=== PATIENT | male | born 1940 | race Caucasian/White ===

== ENCOUNTER → 2016-10-14 | Outpatient (CLI) | payer OTHER | LOC: BHFA 09:15 | PROVIDERS: ATTEND Internal Medicine Interventional Cardiology | DX: I25.10 Atherosclerotic heart disease of native coronary artery without angina pectoris (principal) ==

== ENCOUNTER → 2016-12-25 | Outpatient (CLI) | payer OTHER | LOC: BHFA 09:00 | PROVIDERS: ATTEND Internal Medicine Cardiovascular Disease | DX: R07.9 Chest pain, unspecified (principal); I25.10 Atherosclerotic heart disease of native coronary artery without angina pectoris | CPT/HCPCS: 78452; 93017; A9500 ==

== ENCOUNTER 2017-04-21 15:59 | Emergency (ER) | payer OTHER, MEDICARE ==
--- NOTE | 2017-04-21 16:19 | EDPHY ---
H & P Stated Complaint: fever Time Seen by Provider: 04/21/17 16:18 HPI/ROS: CHIEF COMPLAINT: Fever, generalized weakness HISTORY OF PRESENT ILLNESS: The patient presents to the ED with a several day history of generalized weakness and a high fever earlier today. The patient does report shaking chills earlier in the day. The patient may have had an episode of mild incontinence. The patient denies cough, congestion, flank pain , abdominal pain, diarrhea, travel outside the [place], recent antibiotics or rash. The patient does have a history of coronary artery disease but denies recent infectious symptoms. The patient denies any additional acute complaints. REVIEW OF SYSTEMS: A comprehensive 10 point review of systems is otherwise negative aside from elements mentioned in the history of present illness. Source: Patient - Personal History Current Tetanus/Diphtheria Vaccine: Unsure Current Tetanus Diphtheria and Acellular Pertussis (TDAP): Unsure - Medical/Surgical History Hx Asthma: No Hx Chronic Respiratory Disease: No Hx Diabetes: No Hx Cardiac Disease: No Hx Renal Disease: No Hx Cirrhosis: No Hx Alcoholism: No Hx HIV/AIDS: No Hx Splenectomy or Spleen Trauma: No Other PMH: CAD, cataract surgery, oral surgery - Social History Smoking Status: Never smoked - Physical Exam Exam: General Appearance: Alert, no distress Eyes: Pupils equal and round no pallor or injection ENT, Mouth: Mucous membranes moist Respiratory: There are no retractions, lungs are clear to auscultation Cardiovascular: Tachycardic Gastrointestinal: Abdomen is soft and nontender, no masses, bowel sounds normal Neurological: A&O, normal motor function, normal sensory exam, normal cranial nerves Skin: Warm and dry, no rashes Musculoskeletal: Neck is supple nontender Extremities: symmetrical, full range of motion Constitutional: Initial Vital Signs Temperature (C) 37.5 C 04/21/17 16:04 Heart Rate 119 H 04/21/17 16:04 Respiratory Rate 16 04/21/17 16:04 Blood Pressure 102/70 04/21/17 16:04 O2 Sat (%) 91 L 04/21/17 16:04 O2 Delivery Mode Room Air Allergies/Adverse Reactions: ibuprofen Allergy (Verified 09/24/16 21:09) Home Medications: Medication Instructions Recorded Aspirin EC [Aspirin EC 81 mg (*)] 81 mg PO DAILY 09/24/16 Pravastatin Sodium 20 mg PO DAILY 12/22/16 Clopidogrel Bisulfate [Plavix (*)] 75 mg PO DAILY #0 tab 09/26/16 Medical Decision Making - Diagnostics Imaging Results: Imaging Impressions Chest X-Ray 04/21/17 16:35 Impression: Mild perihilar bronchitis, without a focal infiltrate. ED Course/Re-evaluation: The patient presents to the ED with a fever without source. The patient's urinalysis demonstrates no evidence of infection. Chest x-ray demonstrates no evidence of pneumonia. The patient's sed rate is reassuring at 1. The patient does have a slight leukocytosis and shift. The patient is otherwise well- appearing with a reassuring normal venous lactate of 1.4. Blood cultures have been obtained. At this point time I see no obvious bacterial infection. The patient is well enough appearing that I feel he can watch for any progression of his symptoms at home. The patient has been instructed to follow up with his primary care provider tomorrow for recheck. He should return to the ED immediately for high fever, vomiting, the development of any pain or new symptoms. I re-evaluated the patient at 6:00 p.m.. He is currently asymptomatic. Temperature currently 97.7degrees. The patient will be discharged home and advised to return for new symptoms. He will follow up with his PCP for recheck. Blood cultures are pending. Differential Diagnosis: Differential diagnosis considered includes bacteremia, viral syndrome, pharyngitis, pneumonia, urinary tract infection - Data Points Laboratory Results: Laboratory Results 04/21/17 16:20 04/21/17 16:20 04/21/17 04/21/17 04/21/17 17:10 16:20 16:20 WBC 13.01 10^3/uL H 10^3/uL (3.80-9.50) RBC 5.22 10^6/uL 10^6/uL (4.40-6.38) Hgb 17.7 g/dL H g/dL (13.7-17.5) Hct 49.7 % % (40.0-51.0) MCV 95.2 fL fL (81.5-99.8) MCH 33.9 pg pg (27.9-34.1) MCHC 35.6 g/dL g/dL (32.4-36.7) RDW 13.1 % % (11.5-15.2) Plt Count 152 10^3/uL 10^3/uL (150-400) MPV 9.9 fL fL (8.7-11.7) Neut % (Auto) 96.0 % H % (39.3-74.2) Lymph % (Auto) 2.3 % L % (15.0-45.0) [place] % (Auto) 1.2 % L % (4.5-13.0) Eos % (Auto) 0.0 % L % (0.6-7.6) Baso % (Auto) 0.2 % L % (0.3-1.7) Nucleat RBC Rel Count 0.0 % % (0.0-0.2) Absolute Neuts (auto) 12.49 10^3/uL H 10^3/uL (1.70-6.50) Absolute Lymphs (auto) 0.30 10^3/uL L 10^3/uL (1.00-3.00) Absolute Monos (auto) 0.16 10^3/uL L 10^3/uL (0.30-0.80) Absolute Eos (auto) 0.00 10^3/uL L 10^3/uL (0.03-0.40) Absolute Basos (auto) 0.02 10^3/uL 10^3/uL (0.02-0.10) Absolute Nucleated RBC 0.00 10^3/uL 10^3/uL (0-0.01) Immature Gran % 0.3 % % (0.0-1.1) Immature Gran # 0.04 10^3/uL 10^3/uL (0.00-0.10) ESR 1 MM/HR MM/HR (0-20) VBG Lactic Acid 1.4 mmol/L mmol/L (0.7-2.1) Sodium 138 mEq/L mEq/L (134-144) Potassium 4.1 mEq/L mEq/L (3.5-5.2) Chloride 104 mEq/L mEq/L (97-110) Carbon Dioxide 20 mEq/l L mEq/l (22-31) Anion Gap 14 mEq/L mEq/L (8-16) BUN 22 mg/dL mg/dL (7-23) Creatinine 1.1 mg/dL mg/dL (0.7-1.3) Estimated GFR > 60 Glucose 101 mg/dL H mg/dL (70-100) Calcium 9.5 mg/dL mg/dL (8.5-10.4) Total Bilirubin 1.2 mg/dL mg/dL (0.1-1.4) Conjugated Bilirubin 0.3 mg/dL mg/dL (0.0-0.5) Unconjugated Bilirubin 0.9 mg/dL mg/dL (0.0-1.1) AST 44 IU/L IU/L (17-59) ALT 44 IU/L IU/L (21-72) Alkaline Phosphatase 64 IU/L IU/L (38-126) Total Protein 6.7 g/dL g/dL (6.3-8.2) Albumin 4.2 g/dL g/dL (3.5-5.0) Urine Color Urine Appearance Urine pH Ur Specific [place] Urine Protein Urine Ketones Urine Blood Urine Nitrate Urine Bilirubin Urine Urobilinogen Ur Leukocyte Esterase Urine Glucose 04/21/17 16:00 WBC RBC Hgb Hct MCV MCH MCHC RDW Plt Count MPV Neut % (Auto) Lymph % (Auto) [place] % (Auto) Eos % (Auto) Baso % (Auto) Nucleat RBC Rel Count Absolute Neuts (auto) Absolute Lymphs (auto) Absolute Monos (auto) Absolute Eos (auto) Absolute Basos (auto) Absolute Nucleated RBC Immature Gran % Immature Gran # ESR VBG Lactic Acid Sodium Potassium Chloride Carbon Dioxide Anion Gap BUN Creatinine Estimated GFR Glucose Calcium Total Bilirubin Conjugated Bilirubin Unconjugated Bilirubin AST ALT Alkaline Phosphatase Total Protein Albumin Urine Color YELLOW Urine Appearance HAZY Urine pH 7.0 (5.0-7.5) Ur Specific [place] 1.016 (1.002-1.030) Urine Protein NEGATIVE (NEGATIVE) Urine Ketones TRACE H (NEGATIVE) Urine Blood NEGATIVE (NEGATIVE) Urine Nitrate NEGATIVE (NEGATIVE) Urine Bilirubin NEGATIVE (NEGATIVE) Urine Urobilinogen NEGATIVE EU EU (0.2-1.0) Ur Leukocyte Esterase NEGATIVE (NEGATIVE) Urine Glucose NEGATIVE (NEGATIVE) Departure - Departure Disposition: Home, Routine, Self-Care Clinical Impression: Fever Condition: Good Instructions: Fever in Adults (ED) Additional Instructions: 1. Please follow-up with your primary care provider in the next 1-2 days for recheck. 2. Please return to the ED immediately for high fever, severe pain, vomiting, difficulty breathing or the development of any new symptoms. 3. At this point time I see no evidence of an obvious bacterial infection. We have obtained blood cultures and we will contact you in the bed these are positive. Referrals: Marty Shea DO [Primary Care Provider] - As per Instructions
[2017-04-21 16:25] LABS: COLOR YELLOW; LEUKOCYTE ESTERASE,URINE NEGATIVE (NEGATIVE); NITRITE,URINE NEGATIVE (NEGATIVE)
[2017-04-21 16:40] LABS: % IMMATURE GRANULYOCYTES 0.3 % (0.0-1.1); ABSOLUTE IMMATURE GRANULOCYTES 0.04 10^3/uL (0.00-0.10); ADD DIFF? NO; ADD MORPH? NO; ADD SCAN? NO; ATYPICAL LYMPHOCYTE FLAG 0 (0-99); FRAGMENT RBC FLAG 0 (0-99); HEMATOCRIT 49.7 % (40.0-51.0); HEMOGLOBIN 17.7 g/dL (13.7-17.5); LEFT SHIFT FLG 10 (0-99); LIPEMIA HEMOLYSIS FLAG 90 (0-99); MEAN CELL HEMOGLOBIN 33.9 pg (27.9-34.1); MEAN CELL HEMOGLOBIN CONCENTR. 35.6 g/dL (32.4-36.7); MEAN CELL VOLUME 95.2 fL (81.5-99.8); MEAN PLATELET VOLUME 9.9 fL (8.7-11.7); PLATELET CLUMPS FLAG 10 (0-99); PLATELET COUNT 152 10^3/uL (150-400); RED BLOOD CELL COUNT 5.22 10^6/uL (4.40-6.38); RED CELL DISTRIBUTION WIDTH 13.1 % (11.5-15.2)
[2017-04-21 16:55] LABS: SEDIMENTATION RATE 1 MM/HR (0-20)
[2017-04-21 17:05] LABS: ALANINE AMINOTRANSFERASE 44 IU/L (21-72); ALBUMIN 4.2 g/dL (3.5-5.0); ALKALINE PHOSPHATASE 64 IU/L (38-126); ANION GAP 14 mEq/L (8-16); ASPARTATE AMINOTRANSFERASE 44 IU/L (17-59); BILIRUBIN,TOTAL 1.2 mg/dL (0.1-1.4); BILIRUBIN-CONJUGATED 0.3 mg/dL (0.0-0.5); BILIRUBIN-UNCONJUGATED 0.9 mg/dL (0.0-1.1); CALCIUM 9.5 mg/dL (8.5-10.4); CARBON DIOXIDE 20 mEq/l (22-31); CHLORIDE 104 mEq/L (97-110); CREATININE 1.1 mg/dL (0.7-1.3); GLOMERULAR FILTRATION RATE > 60; GLUCOSE 101 mg/dL (70-100); POTASSIUM 4.1 mEq/L (3.5-5.2); SODIUM 138 mEq/L (134-144); TOTAL PROTEIN 6.7 g/dL (6.3-8.2)
[2017-04-21 17:58] VITALS: BP 130/83; PULSE 99; RESP 18; TEMP 98.1; O2SAT 92
[2017-04-21 21:20] LABS: MUCUS TRACE /lpf (NONE-1+); RBC,URINE NONE SEEN /hpf (0-3)
[2017-04-26 16:47] LABS: INTERPRETATION See Comments; WEST NILE VIRUS IGG Negative (Negative); WEST NILE VIRUS IGM Negative (Negative)
== END 2017-04-21 18:03 | disposition home or self-care (01) ==
DX: R50.9 Fever, unspecified (principal); I25.10 Atherosclerotic heart disease of native coronary artery without angina pectoris; Z79.82 Long term (current) use of aspirin

== ENCOUNTER 2017-04-23 01:14 | Observation (INO) | payer OTHER, MEDICARE ==
[2017-04-23] MEDS ORDERED: NS 1,000 ML IV ONE (02:18)
[2017-04-23 02:45] LABS: % IMMATURE GRANULYOCYTES 0.3 % (0.0-1.1); ABSOLUTE IMMATURE GRANULOCYTES 0.02 10^3/uL (0.00-0.10); ADD DIFF? NO; ADD MORPH? NO; ADD SCAN? NO; ATYPICAL LYMPHOCYTE FLAG 0 (0-99); FRAGMENT RBC FLAG 0 (0-99); HEMATOCRIT 49.1 % (40.0-51.0); HEMOGLOBIN 17.2 g/dL (13.7-17.5); LEFT SHIFT FLG 0 (0-99); LIPEMIA HEMOLYSIS FLAG 90 (0-99); MEAN CELL HEMOGLOBIN 33.7 pg (27.9-34.1); MEAN CELL VOLUME 96.1 fL (81.5-99.8); MEAN PLATELET VOLUME 9.8 fL (8.7-11.7); PLATELET CLUMPS FLAG 0 (0-99); PLATELET COUNT 130 10^3/uL (150-400); RED BLOOD CELL COUNT 5.11 10^6/uL (4.40-6.38); RED CELL DISTRIBUTION WIDTH 13.3 % (11.5-15.2)
[2017-04-23 03:07] LABS: ANION GAP 10 mEq/L (8-16); CARBON DIOXIDE 25 mEq/l (22-31); CHLORIDE 102 mEq/L (97-110); CREATININE 1.2 mg/dL (0.7-1.3); GLOMERULAR FILTRATION RATE 58; GLUCOSE 92 mg/dL (70-100); POTASSIUM 4.2 mEq/L (3.5-5.2); SODIUM 137 mEq/L (134-144)
--- NOTE | 2017-04-23 03:35 | EDPHY ---
H & P Time Seen by Provider: 04/23/17 02:07 HPI/ROS: HPI Positive blood culture. 77-year-old male by private vehicle. This patient was seen in the emergency department on April [address] Todd Rice. At that time he presented with complaint of fever, chills, malaise and generalized weakness. He had an extensive workup including blood cultures and a chest x-ray. He was discharged to home. Results of his blood cultures were pending. His blood culture results came back earlier this evening and were both positive for gram-negative rods. He was called back to the emergency department by our nursing staff. Tells me at this time that he is feeling better. He denies any significant complaints. I discussed my concern regarding his bacteremia. He states that he still feels a little fatigued but otherwise has not had any fevers or chills. No cough. No other complaints. ROS: Constitutional: No fever, no chills. As above. Eyes: No discharge. No changes in vision. ENT: No sore throat. No nasal congestion or rhinorrhea. Respiratory: No cough. No shortness of breath. Cardiac: No chest pain, no palpitations. Gastrointestinal: No abdominal pain, no vomiting, no diarrhea. Genitourinary: No hematuria. No dysuria or increased frequency with urination. Musculoskeletal: No back pain. No neck pain. No myalgias or arthralgias. Skin: No rashes. Neurological: No headache. No focal weakness or altered sensation. Past medical history: Coronary artery disease, cataract surgery, oral surgery. Social history: He has a significant other. He is currently here by himself. Nonsmoker. Physical Exam: General Appearance: Alert, no distress. This patient is responding to questions appropriately and in full sentences. This patient appears well- hydrated and well-nourished. Eyes: Pupils equal and round no pallor or injection. No lid edema, erythema or injection. Respiratory: There are no retractions, lungs are clear to auscultation with good air movement bilaterally. Cardiovascular: Regular rate and rhythm. No murmur. Gastrointestinal: Abdomen is soft and nontender, no masses, bowel sounds normal. No focal tenderness at McBurney's point. No Orozco sign. Neurological: Motor sensory function is grossly intact. Cranial nerves are normal. Gait is normal. Skin: Warm and dry, no rashes. Musculoskeletal: Neck is supple and nontender. No cervical or submandibular lymphadenopathy. Extremities are symmetrical. All joints range without pain or impingement. Psychiatric: No agitation. No depression. Database: EKG: Imaging: Procedures: Emergency department course: Vital signs reviewed and are normal. An IV was placed by the nursing staff. His previous medical records were reviewed. Blood work including venous lactate was repeated. Repeat lactate is 0.8, down from 1.4 on April 21. CBC shows a platelet count 130 but is otherwise unremarkable. No leukocytosis. His renal function and electrolytes are normal. 3:20 a.m., I consulted with on-call infectious disease specialist, Dr. Eliud Tapia. He feels the patient should be admitted and started on IV ceftriaxone. The other option was to send him home on oral Levaquin. 3:30 a.m., patient re-evaluated. I discussed my conversation with Dr. Eliud Tapia. Results of his blood work were discussed with him. Patient currently does not want to be admitted. I discussed the reasoning for admission and my concerns regarding his blood culture results. He will talk it over with his partner. 3:45 a.m., patient agrees to be admitted to the hospitalist service. He was started on 2 g of IV ceftriaxone in the emergency department. 3:50 a.m., spoke with on-call hospitalist, Dr. Bourne. She was aware of this patient. She accepts the patient for admission. The patient's remaining emergency department course under my care has been uneventful. He was admitted to the hospitalist service in stable condition. Differential Diagnosis: The differential diagnosis on this patient includes but is not limited to bacteremia. Sepsis, pneumonia, urinary tract infection unlikely. This represents a partial list of diagnoses considered. These considerations are based on history, physical exam, past history, reassessment and diagnostic testing. Smoking Status: Never smoked Constitutional: Initial Vital Signs Temperature (C) 36.6 C 04/23/17 01:26 Heart Rate 82 04/23/17 01:26 Respiratory Rate 18 04/23/17 01:26 Blood Pressure 127/64 H 04/23/17 01:26 O2 Sat (%) 94 04/23/17 01:26 O2 Delivery Mode Room Air Allergies/Adverse Reactions: ibuprofen Allergy (Verified 09/24/16 21:09) Home Medications: Medication Instructions Recorded Aspirin EC [Aspirin EC 81 mg (*)] 81 mg PO DAILY 09/24/16 Pravastatin Sodium 20 mg PO DAILY 09/24/16 Clopidogrel Bisulfate [Plavix (*)] 75 mg PO DAILY #0 tab 09/26/16 Pepcid 20 MG (*) 04/23/17 Medical Decision Making - Data Points Laboratory Results: Laboratory Results 04/23/17 02:37 04/23/17 02:37 04/23/17 04/23/17 04/23/17 02:37 02:37 02:37 WBC 6.64 10^3/uL 10^3/uL (3.80-9.50) RBC 5.11 10^6/uL 10^6/uL (4.40-6.38) Hgb 17.2 g/dL g/dL (13.7-17.5) Hct 49.1 % % (40.0-51.0) MCV 96.1 fL fL (81.5-99.8) MCH 33.7 pg pg (27.9-34.1) MCHC 35.0 g/dL g/dL (32.4-36.7) RDW 13.3 % % (11.5-15.2) Plt Count 130 10^3/uL L 10^3/uL (150-400) MPV 9.8 fL fL (8.7-11.7) Neut % (Auto) 82.7 % H % (39.3-74.2) Lymph % (Auto) 7.7 % L % (15.0-45.0) [place] % (Auto) 8.4 % % (4.5-13.0) Eos % (Auto) 0.6 % % (0.6-7.6) Baso % (Auto) 0.3 % % (0.3-1.7) Nucleat RBC Rel Count 0.0 % % (0.0-0.2) Absolute Neuts (auto) 5.49 10^3/uL 10^3/uL (1.70-6.50) Absolute Lymphs (auto) 0.51 10^3/uL L 10^3/uL (1.00-3.00) Absolute Monos (auto) 0.56 10^3/uL 10^3/uL (0.30-0.80) Absolute Eos (auto) 0.04 10^3/uL 10^3/uL (0.03-0.40) Absolute Basos (auto) 0.02 10^3/uL 10^3/uL (0.02-0.10) Absolute Nucleated RBC 0.00 10^3/uL 10^3/uL (0-0.01) Immature Gran % 0.3 % % (0.0-1.1) Immature Gran # 0.02 10^3/uL 10^3/uL (0.00-0.10) VBG Lactic Acid 0.8 mmol/L mmol/L (0.7-2.1) Sodium 137 mEq/L mEq/L (134-144) Potassium 4.2 mEq/L mEq/L (3.5-5.2) Chloride 102 mEq/L mEq/L (97-110) Carbon Dioxide 25 mEq/l mEq/l (22-31) Anion Gap 10 mEq/L mEq/L (8-16) BUN 22 mg/dL mg/dL (7-23) Creatinine 1.2 mg/dL mg/dL (0.7-1.3) Estimated GFR 58 Glucose 92 mg/dL mg/dL (70-100) Calcium 9.0 mg/dL mg/dL (8.5-10.4) Medications Given: Discontinued Medications Sodium Chloride (Ns) 1,000 mls @ 0 mls/hr IV ONCE ONE; Wide Open PRN Reason: Protocol Stop: 04/23/17 02:19 Last Admin: 04/23/17 04:54 Dose: 1,000 mls Ceftriaxone Sodium 2 gm/ (Dextrose) 50 mls @ 100 mls/hr IV EDNOW ONE PRN Reason: Protocol Stop: 04/23/17 04:19 Last Admin: 04/23/17 04:53 Dose: 50 mls Departure - Departure Disposition: [facility] Clinical Impression: Bacteremia
[2017-04-23] MEDS ORDERED: cefTRIAXone 2 GM in D5W 50 ML IV ONE (03:50)
[2017-04-23] MEDS ORDERED: ACETAMINOPHEN 325 MG TAB PO PRN (05:03)
[2017-04-23] MEDS ORDERED: oxyCODONE IR 5 MG TAB PO PRN (05:03)
[2017-04-23] MEDS ORDERED: ONDANSETRON DISINTEGRATING 4 MG TAB PO PRN (05:03)
[2017-04-23] MEDS ORDERED: ONDANSETRON 4 MG/2 ML VIAL IVP PRN (05:03)
--- NOTE | 2017-04-23 06:41 | PDGENHP ---
History and Physical - Chief Complaint told to come back - History of Present Illness 77 yo M with PMH of CAD s/p stent to LAD in the last year presenting after being called and told to return to the ER for positive blood cultures. Patient was seen on 04/21 for fever and shaking chills. He had no other localizing symptoms and after being observed in the ER, had improved significantly. Blood cultures were drawn and patient was sent home without antibiotics and a plan to monitor his symptoms. Since discharge he notes essentially continuing to improve. He remains somewhat fatigued and with a bit less of an appetite, but otherwise denies recurrent fever or chills, denies urinary symptoms, denies cough or sob, denies n/v or diarrhea, denies rash. He also mentions a concern that his brother is due to fly in from [place] today and he is very hopeful that he will be able to be d/c'ed this afternoon. History Information - Allergies/Home Medication List Allergies/Adverse Reactions: ibuprofen Allergy (Verified 09/24/16 21:09) Home Medications: Aspirin EC [Aspirin EC 81 mg (*)] 81 mg PO DAILY 09/24/16 [Last Taken Unknown] Pravastatin Sodium 20 mg PO DAILY 09/24/16 [Last Taken Unknown] Pepcid 20 MG (*) 04/23/17 [Last Taken Unknown] I have personally reviewed and updated: family history, medical history, social history, surgical history - Past Medical History coronary artery disease (s/p stent to LAD 09/2016), hyperlipidemia Additional medical history: CAD - Surgical History Reports: angioplasty Additional surgical history: oral surgery. b/l cataract repair. tonsillectomy - Family History Positive for: stroke Additional family history: both parents: CVA - Social History Smoking Status: Never smoked Alcohol Use: Occasionally Drug Use: None Additional social history: Patient lives with his girlfriend. Is independent. 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 Review of Systems ROS: 10pt was reviewed & negative except for what was stated in HPI & below Physical Exam Temp Pulse Resp BP Pulse Ox 36.6 C 69 16 134/70 H 94 04/23/17 05:03 04/23/17 05:03 04/23/17 05:03 04/23/17 05:03 04/23/17 05:03 Constitutional: no apparent distress, appears nourished Eyes: PERRL, anicteric sclera Ears, Nose, Mouth, Throat: moist mucous membranes, hearing normal Cardiovascular: regular rate and rhythym, no murmur, rub, or gallop, No edema Respiratory: no respiratory distress, no rales or rhonchi, clear to auscultation Gastrointestinal: normoactive bowel sounds, soft, non-tender abdomen, no palpable masses, No tenderness, No distension Genitourinary: no bladder tenderness Skin: warm, normal color Musculoskeletal: full muscle strength, no muscle tenderness Neurologic: AAOx3, sensation intact bilaterally Psychiatric: interacting appropriately, not anxious, not encephalopathic Lab Data & Imaging Review 04/23/17 02:37 04/23/17 02:37 WBC 6.64 10^3/uL (3.80-9.50) 04/23/17 02:37 RBC 5.11 10^6/uL (4.40-6.38) 04/23/17 02:37 Hgb 17.2 g/dL (13.7-17.5) 04/23/17 02:37 Hct 49.1 % (40.0-51.0) 04/23/17 02:37 MCV 96.1 fL (81.5-99.8) 04/23/17 02:37 MCH 33.7 pg (27.9-34.1) 04/23/17 02:37 MCHC 35.0 g/dL (32.4-36.7) 04/23/17 02:37 RDW 13.3 % (11.5-15.2) 04/23/17 02:37 Plt Count 130 10^3/uL (150-400) L 04/23/17 02:37 MPV 9.8 fL (8.7-11.7) 04/23/17 02:37 Neut % (Auto) 82.7 % (39.3-74.2) H 04/23/17 02:37 Lymph % (Auto) 7.7 % (15.0-45.0) L 04/23/17 02:37 [place] % (Auto) 8.4 % (4.5-13.0) 04/23/17 02:37 Eos % (Auto) 0.6 % (0.6-7.6) 04/23/17 02:37 Baso % (Auto) 0.3 % (0.3-1.7) 04/23/17 02:37 Nucleat RBC Rel Count 0.0 % (0.0-0.2) 04/23/17 02:37 Absolute Neuts (auto) 5.49 10^3/uL (1.70-6.50) 04/23/17 02:37 Absolute Lymphs (auto) 0.51 10^3/uL (1.00-3.00) L 04/23/17 02:37 Absolute Monos (auto) 0.56 10^3/uL (0.30-0.80) 04/23/17 02:37 Absolute Eos (auto) 0.04 10^3/uL (0.03-0.40) 04/23/17 02:37 Absolute Basos (auto) 0.02 10^3/uL (0.02-0.10) 04/23/17 02:37 Absolute Nucleated RBC 0.00 10^3/uL (0-0.01) 04/23/17 02:37 Immature Gran % 0.3 % (0.0-1.1) 04/23/17 02:37 Immature Gran # 0.02 10^3/uL (0.00-0.10) 04/23/17 02:37 VBG Lactic Acid 0.8 mmol/L (0.7-2.1) 04/23/17 02:37 Sodium 137 mEq/L (134-144) 04/23/17 02:37 Potassium 4.2 mEq/L (3.5-5.2) 04/23/17 02:37 Chloride 102 mEq/L (97-110) 04/23/17 02:37 Carbon Dioxide 25 mEq/l (22-31) 04/23/17 02:37 Anion Gap 10 mEq/L (8-16) 04/23/17 02:37 BUN 22 mg/dL (7-23) 04/23/17 02:37 Creatinine 1.2 mg/dL (0.7-1.3) 04/23/17 02:37 Estimated GFR 58 04/23/17 02:37 Glucose 92 mg/dL (70-100) 04/23/17 02:37 Calcium 9.0 mg/dL (8.5-10.4) 04/23/17 02:37 Visualized and Interpreted Chest x-ray results: Yes Chest X-Ray results: other (mild bronchitis) Assessment & Plan Assessment: Bacteremia (Acute) 77 yo M with recent ER evaluation for rigors and fever called back for positive blood cultures # GNR bacteremia: present in 2/2 bottles from 04/21, has not been on abx since that time however symptoms have resolved in the interim. Dr. Tapia was contacted by ER and recommended CTX for now. Repeat blood cultures obtained, UA and LFTs from 04/21 were normal but will repeat. BCID PCR results discussed with micro lab and notable for no organism discovered with final culture data pending. Will continue ctx for now and have requested formal ID consult in am. # leukocytosis: present 2 days ago and since normalized, in setting of above # CAD: without any issues with cp or other complaints related to this, continue asa/plavix/statin # dispo: observation status Patient new to my care. Old records reviewed and summarized as above. Care plan reviewed with ER doctor including plans for abx/ID consultation.
[2017-04-23 06:57] LABS: ANION GAP 9 mEq/L (8-16); CALCIUM 8.1 mg/dL (8.5-10.4); CARBON DIOXIDE 23 mEq/l (22-31); CHLORIDE 106 mEq/L (97-110); CREATININE 1.1 mg/dL (0.7-1.3); GLOMERULAR FILTRATION RATE > 60; GLUCOSE 91 mg/dL (70-100); SODIUM 138 mEq/L (134-144)
[2017-04-23 07:59] LABS: ALBUMIN 3.3 g/dL (3.5-5.0); BILIRUBIN,TOTAL 0.8 mg/dL (0.1-1.4); BILIRUBIN-CONJUGATED 0.4 mg/dL (0.0-0.5); BILIRUBIN-UNCONJUGATED 0.4 mg/dL (0.0-1.1)
[2017-04-23] MEDS: CLOPIDOGREL BISULFATE 75 MG TAB PO SCH (08:28)
[2017-04-23] MEDS: ENOXAPARIN 40 MG/0.4 ML SYR SC SCH (08:29)
[2017-04-23] MEDS ORDERED: ASPIRIN 81 MG CHEWABLE TAB PO SCH ×2 (09:00→12:00)
[2017-04-23] MEDS ORDERED: ERTAPENEM 1 GM in NS 100 ML IV SCH (10:30)
[2017-04-23] MEDS: FAMOTIDINE 20 MG TAB PO SCH ×2 (11:37→20:14)
--- NOTE | 2017-04-23 12:41 | GCON ---
[f rep st] CONSULTATION INFECTIOUS DISEASES CONSULTATION DATE OF CONSULTATION: 04/23/2017 REFERRING PHYSICIAN: Sneha Méndez NP REASON FOR CONSULTATION: To assist in the management of this 77-year-old male with anaerobic gram-negative dannielle bacteremia. HISTORY OF PRESENT ILLNESS: The patient is a very pleasant 77-year-old male whose previous medical history is notable for the followin. CAD status post stent to LAD within the last year. 2. History of basal cell carcinoma removal from his back. 3. Hyperlipidemia. Regarding his present issues, the patient states that he was completely well up until Wednesday. 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 On Wednesday, he went ballroom dancing with his female partner and although he was actively dancing, he states that he felt "chilly." Then, the patient states he began to shake uncontrollably, so decided to come to our emergency room for further evaluation and treatment. In the emergency room, the patient's temperature was 37.5 with a normal blood pressure and heart rate in the 80s to 90s. His white blood cell count was elevated at 13, ESR of 1. Liver function tests were within normal limits. Renal function was normal. Urinalysis revealed trace ketones, otherwise was negative. Blood cultures were drawn. A chest x-ray was performed that revealed "mild perihilar bronchitis without focal infiltrate." The patient was observed closely in the emergency room. Because there was no blatant evidence of infection, the patient was told he likely had a viral illness and was discharged to home. He states that on he felt better, but not back to himself. He states that his appetite was diminished, although he was still eating. He has not had any further rigors or shakes per se. He told me that he has been checking his blood pressure and heart rate at home, and his blood pressure has been slightly elevated with an elevated heart rate, which is unusual for him. He denies any fever at home, off any Tylenol or fever suppressant. Last evening at 12:30 in the morning, the patient states he was called from the emergency room to come back because of positive blood cultures. The patient states that he was annoyed at being called, and frustrated over the fact that he has to be here. Blood cultures drawn on the are growing anaerobic gram- negative dannielle in what looks to be 2/4 bottles drawn. The patient was admitted last evening and started on ceftriaxone. I am now asked to assist in his management. Speaking with the patient today, he states that he feels better, but not back to himself and is eager to go home. The patient states that his brother is coming in from [place] tomorrow and would like to be home by noon tomorrow. The patient states that his last colonoscopy was 5-1/2 years ago. He states that 1 "precancerous" polyp was found and was removed. Last dental visit was 2 months ago. The patient denies abdominal pain, but does tell me on evening he developed significant hiccups "out of the blue." He states that he has not had hiccups in over 30 years and had to drink several cups of water to get rid of them. PREVIOUS MEDICAL HISTORY: As outlined above. ALLERGIES: Ibuprofen causes a rash and oral ulcers. MEDICATIONS: Presently include ceftriaxone 1 g IV daily, aspirin, Plavix, Lovenox, Zofran, oxycodone, and Pravachol. 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 He lives in [place] with his female partner. He enjoys ballroom dancing as outlined above and plays the flute. He denies any unusual exposures or any recent travel within or outside the [place]. No unpasteurized milk or undercooked foods. He has a dog who is mostly indoor, who is dying of congestive heart failure. No other pets. He drinks 2 alcoholic beverages per evening. History of tobacco, but quit 27 years ago. No other illicit substances. He has 2 children who are healthy. FAMILY HISTORY: Notable for stroke in both parents. REVIEW OF SYSTEMS: Is notable for mild headache and rigors on Wednesday, but no further rigors since then. Diminished appetite, but the patient is eating. He denies nausea, vomiting, sore throat, cough, chest pain, abdominal pain of any sort, burning with urination, or symptoms of prostatism. No penile discharge. No bloody stool or dark tarry stools or changes in his bowel movements. No mouth pain or pain with mastication. No sinus pain or ear pain. No skin rash. Aside from what is outlined above, 10 systems are reviewed and are negative. LABORATORY DATA: White blood cell count is 6.6, down from 13 two days previously, hematocrit 49, platelet count of 130, down from 152, 82% neutrophils. BUN and creatinine 20/1.1. Liver function tests on 04/23 show total bilirubin of 0.8, AST of 41, ALT of 39, alkaline phosphatase of 51. Albumin diminished at 3.3. Urinalysis is negative. West Nile serology is pending. Microbiology: Blood cultures x2 from today are pending. Urine culture is also pending. Blood cultures from the , 2/ bottles are growing anaerobic gram-negative dannielle that is not able to be identified through PCR. PHYSICAL EXAM: VITAL SIGNS: T current is 36.6, T-max 37.5 on 04/21, heart rate 69, blood pressure 134/70. GENERAL: Elderly male, looks completely nontoxic, pleasant, no apparent distress. HEENT: Wearing glasses. Atraumatic, normocephalic. Pupils equal, round, reactive to light. Extraocular movements are intact. No conjunctival injection. No icterus or petechiae. No sinus process tenderness or discharge from the nares. Mucous membranes are moist. No oral lesions noted. Dentition in fair repair with some gum recession. I carefully palpated the patient's gums and teeth, uppers and lowers, and found no evidence of apical or periapical abscess or tooth tenderness whatsoever. Trachea is midline. NECK: No thyromegaly or palpable thyroid nodules. No supraclavicular or cervical lymphadenopathy. CARDIOVASCULAR: S1 and S2. No rubs, gallops, or murmurs audible. No tachycardia. LUNGS: Clear to auscultation bilaterally with no rales, rhonchi, or wheeze. No increased respiratory effort. The patient's anterior chest is somewhat discolored with a purplish hue that he tells me is longstanding. ABDOMEN: Scaphoid, hypoactive bowel sounds. Soft. No organomegaly or tenderness to palpation anywhere. EXTREMITIES: No clubbing, cyanosis, or edema. No muscle belly tenderness. 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 No stigmata of endocarditis. SKIN: Warm and dry. No obvious rashes. He has a purplish hue to the anterior chest, which is longstanding. NEUROLOGIC: Alert and oriented x3. No focal deficits. LABORATORY DATA: As outlined above. RADIOGRAPHIC DATA: Also as outlined in the HPI. IMPRESSION: 77-year-old male with history of coronary artery disease, who now presents with anaerobic gram-negative dannielle bacteremia without a clear source. The patient has no abdominal symptoms whatsoever, and no evidence of an odontogenic source, or any other source, for that matter. PLAN: 1. Change Ceftriaxone to Ertapenem. 2. Will obtain CT scan of the abdomen and pelvis to evaluate for gastrointestinal source. 3. Await identification of the anaerobic gram-negative dannielle. 4. Repeat blood cultures are pending. 5. The patient is anxious to go home but is agreeable to staying at least through tomorrow at noon. I explained to him the importance of a further evaluation. He expressed understanding. Thank you very much for consulting Infectious Diseases. We will continue to follow this patient with you. /[id number]/MODL MTDD
[2017-04-23] MEDS ORDERED: IOPAMIDOL (ISOVUE-300) 100 ML BTL ONE (13:03)
--- NOTE | 2017-04-23 13:09 | HOSPPROG ---
Hospitalist Progress Note Assessment/Plan: 77 yo M with recent ER evaluation for rigors and fever called back for positive blood cultures. D/W Dr Roberts # GNR bacteremia: present in 2/2 bottles from 04/21, has not been on abx since that time however symptoms have resolved in the interim. Dr. Roberts consulting today. Repeat blood cultures obtained, CT of abdomin UA and LFTs from 04/21 were normal but repeated. BCID PCR results notable for no organism discovered with final culture data pending. on Invanz # leukocytosis: present 2 days ago and since normalized, in setting of above # CAD: without any issues with cp or other complaints related to this, continue asa/plavix/statin # dispo: observation status Subjective: Eager to go home. Feels well. No complaints. Objective: Vital Signs Temp Pulse Resp BP Pulse Ox 36.5 C 68 16 110/64 92 04/23/17 12:00 04/23/17 12:00 04/23/17 12:00 04/23/17 12:00 04/23/17 12:00 Laboratory Results 04/23/17 06:20 04/22/17 04/23/17 04/24/17 05:59 05:59 05:59 Intake Total 300 Balance 300 - Physical Exam Constitutional: no apparent distress, appears nourished, not in pain Eyes: PERRL, anicteric sclera, EOMI Ears, Nose, Mouth, Throat: moist mucous membranes, hearing normal, ears appear normal Cardiovascular: regular rate and rhythym, No JVD, No edema Respiratory: no respiratory distress, no rales or rhonchi, clear to auscultation Gastrointestinal: normoactive bowel sounds, soft, non-tender abdomen, No tenderness, No ascites Skin: warm, normal color, No erythema Musculoskeletal: full muscle strength, no muscle tenderness, no joint effusions Neurologic: AAOx3 Psychiatric: interacting appropriately, not anxious, not encephalopathic, thought process linear ICD10 Worksheet Patient Problems: Problems Problem Status Onset Chest pain Acute Bacteremia Acute
--- NOTE | 2017-04-23 14:33 | PCMIDPN ---
Assessment/Plan: 1. Gram-negative dannielle bacteremia, likely secondary to rectosigmoid diverticulitis: Spoke to the patient at length today. Plan for tomorrow is to start oral levofloxacin and metronidazole and discontinue ertapenem. Warned him of Antabuse effect associated with metronidazole, and possible confusion associated with levofloxacin. Will treat for 10 days total. I have asked him to have his partner come in tomorrow morning to be present for the discussion prior to discharge. ( Will review antibiotic side effects, etc) Subjective: Reviewed CT scan of the abdomen and pelvis with . extensive diverticulosis, with probable diverticulitis without abscess in the rectosigmoid area. Had extensive conversation with patient regarding pathophysiology /prognosis regarding diverticulitis. Objective: Vital Signs Temp Pulse Resp BP Pulse Ox 36.5 C 68 16 110/64 92 04/23/17 12:00 04/23/17 12:00 04/23/17 12:00 04/23/17 12:00 04/23/17 12:00 Laboratory Results 04/23/17 06:20 04/22/17 04/23/17 04/24/17 05:59 05:59 05:59 Intake Total 300 Balance 300 ICD10 Worksheet Patient Problems: Problems Problem Status Onset Bacteremia Acute Chest pain Acute
[2017-04-24 07:44] VITALS: BP 98/58; PULSE 59; RESP 16; TEMP 98.8; O2SAT 93
[2017-04-24] MEDS: FAMOTIDINE 20 MG TAB PO SCH (08:42)
[2017-04-24] MEDS: ENOXAPARIN 40 MG/0.4 ML SYR SC SCH (08:43)
[2017-04-24] MEDS: CLOPIDOGREL BISULFATE 75 MG TAB PO SCH (08:43)
[2017-04-24] MEDS ORDERED: metroNIDAZOLE 500 MG TAB PO SCH (09:00)
[2017-04-24] MEDS ORDERED: MULTIVITAMINS 1 EACH TAB PO SCH (09:00)
[2017-04-24] MEDS ORDERED: CLOPIDOGREL BISULFATE 75 MG TAB PO SCH (09:00)
[2017-04-24] MEDS ORDERED: PRAVASTATIN SODIUM 40 MG TAB PO SCH (09:00)
[2017-04-24] MEDS ORDERED: ASPIRIN EC 81 MG TAB PO SCH (09:00)
--- NOTE | 2017-04-24 09:51 | PCMIDPN ---
Assessment/Plan: 1. Gram-negative dannielle bacteremia, secondary to rectosigmoid diverticulitis: Patient is anxious and eager to go home. States that he feels completely well. Had 1st dose of levofloxacin and metronidazole this morning. Warned him of confusion associated with levofloxacin in the elderly, (talked to him about tendinopathy and neuropathy yesterday) and the Antabuse effect of metronidazole. Will be treated with 10 days total. Follow-up blood cultures no growth so far. I have asked him to see his primary care doctor this week, but do not feel that he needs follow-up in our clinic, per se. I gave the patient my card and told him that he can call me with questions or concerns moving forward. Also gave him handout from up-to-date on diverticulitis, and reiterated the importance of a high-fiber diet with plenty of water. All questions answered. Subjective: Anxious to go home. Objective: Levofloxacin 750 p. o. daily Metronidazole 500 mg p.o. three times daily Afebrile Vital Signs Temp Pulse Resp BP Pulse Ox 37.1 C 59 L 16 98/58 L 93 04/24/17 07:43 04/24/17 07:43 04/24/17 07:43 04/24/17 07:43 04/24/17 07:43 Laboratory Results 04/23/17 06:20 04/23/17 04/24/17 04/25/17 05:59 05:59 05:59 Intake Total 300 240 Balance 300 240 Blood cultures from 11/07 bottles with an anaerobic gram-negative dannielle yet to be identified Follow-up blood cultures 721 no growth so far - Physical Exam General Appearance: alert, no apparent distress Abdomen: non-tender, soft ICD10 Worksheet Patient Problems: Problems Problem Status Onset Bacteremia Acute Chest pain Acute
--- NOTE | 2017-04-24 18:55 | GDS ---
[f rep st] DISCHARGE SUMMARY DISCHARGE DIAGNOSES: Gram-negative dannielle bacteremia likely secondary to reactive sigmoid diverticulit is. CONSULTATIONS: Infectious Disease. STUDIES AND PROCEDURES: CT of the abdomen. PHYSICAL EXAM: GENERAL: The patient is alert. VITAL SIGNS: Afebrile at 37.1, pulse 59, respirato ry rate 16, blood pressure is 98/58. He is saturating 93% on room air. I have seen and evaluated the patient on the day of discharge. HOSPITAL COURSE: The patient is a 77-year-old male who presented to the emergency room with complai nts of rigors. Blood cultures were taken. The patient was sent home. He was called to return to [facility] secondary to gram-negative dannielle bacteremia. During this hospital course, he received a c onsultation from Infectious Disease. A CAT scan of the abdomen and pelvis was performed, noting lik arabella rectosigmoid diverticulitis in the resolving state. The patient was treated with antibiotic the rapy during this hospitalization. He has been transitioned to Levaquin, as well as Flagyl, for disp osition. He will continue on these antibiotics for a total of 10 days. Blood cultures will be foll owed. Repeat blood cultures have had no growth so far. He will follow up with his primary care pravin deluna this week. DISCHARGE INSTRUCTION: He has been educated with regard to diverticulitis and the treatment as well as the importance of a high-fiber diet with plenty of water. DISCHARGE MEDICATIONS: Please refer to EMR form. I have not adjusted the patient's previously pres cribed home medications. Again, he has been provided a prescription for Levaquin 750 mg daily (#10) , as well as Flagyl 500 mg t.i.d. (#30). FOLLOWUP: Will be with Dr. Marty Shea this week. /[id number]/MODL
== END 2017-04-24 11:08 | disposition home or self-care (01) ==
LOC: INTOOBSV 03:50 → F3E 05:28
PROVIDERS: ADMIT Internal Medicine; ATTEND Internal Medicine
DX: K57.32 Diverticulitis of large intestine without perforation or abscess without bleeding (principal); R78.81 Bacteremia; I25.10 Atherosclerotic heart disease of native coronary artery without angina pectoris; E78.5 Hyperlipidemia, unspecified; Z95.5 Presence of coronary angioplasty implant and graft; D72.829 Elevated white blood cell count, unspecified; Z85.828 Personal history of other malignant neoplasm of skin; Z82.49 Family history of ischemic heart disease and other diseases of the circulatory system
CPT/HCPCS: 74177; 96374; 99285; G0378; J0696; J1335; J1650; Q9967

== ENCOUNTER → 2017-06-23 | Outpatient (CLI) | payer OTHER, MEDICARE | LOC: FIMAGING 14:30 | PROVIDERS: ATTEND Family Medicine | DX: R10.31 Right lower quadrant pain (principal) ==

== ENCOUNTER 2017-08-01 20:23 | Emergency (ER) | payer OTHER, MEDICARE ==
[2017-08-01 20:29] VITALS: RESP 18; O2SAT 92
--- NOTE | 2017-08-01 20:36 | EDPHY ---
H & P Stated Complaint: fever since 1800 HPI/ROS: CHIEF COMPLAINT: Fever HISTORY OF PRESENT ILLNESS: The patient is a 77 y/o male arriving with his family member complaining of a fever for the last few hours. He was admitted in April, 3 months ago, with bacteremia after developing rigors and chills. He felt normal upon waking this morning. This evening he developed shaking, then felt cold, then noticed his muscles seemed "unduly stretchable." These symptoms felt exactly the same as his prior admission with bacteremia. He has not taken anything for his fever and reports it was 100.3F at home. He denies cough, sore throat, headache, myalgias, cold, dysuria, chest pain, dyspnea, abdominal pain, or blood in stool. He did receive a flu vaccination this season. No history of diabetes or immunosuppression. He does take anticoagulation. Today while working in the yard he had a puncture injury to his right forearm. He mentions that he licked this injury because he has been told that this will help his blood to clot. REVIEW OF SYSTEMS: A ten point review of systems was performed and is negative with the exception of the items mentioned in the HPI. Past medical history: CAD; hyperlipidemia; admission for bacteremia 04/23/17; diverticulosis on colonoscopy 3 weeks ago; reflux; macular degeneration, hard of hearing. Past surgical history: LAD stent - Plavix Family history: Both grandparents of colon cancer, mother had colon cancer Social history: Family member at bedside. Former smoker. Retired. Lives in [place]. Dr. Figueroa Prior medical records reviewed including admission 04/23/17 for bacteremia. General Appearance: Alert. Vital signs reviewed. Temperature 37.8 degrees, heart rate 123, blood pressure 122/60. Eyes: Pupils equal and round, no conjunctival injection, no discharge. Anicteric. ENT, Mouth: Mucous membranes are dry, no oropharyngeal erythema or edema. Hearing aids in place. TMs clear bilaterally. Neck: No lymphadenopathy, supple. Respiratory: Lungs are clear to auscultation but distant; no wheezes, rales, or rhonchi. Cardiovascular: Tachycardic regular rate and rhythm; no murmur, rub, or gallop. Gastrointestinal: Abdomen is soft and nontender, no masses or organomegaly, bowel sounds normal. Skin: Hot and dry, no rashes on exposed skin, normal color. Back: Nontender to palpation over the thoracolumbar spine. No CVAT. Extremities: No lower extremity edema, no calf tenderness or swelling. Scattered bruises on his arms. No warmth or erythema at the site of his puncture wound. Neurological: Alert and oriented. Moving all four extremities easily and equally. VIOLA. EOMI. Facial expression symmetric. Tongue midline. Psychiatric: Normal affect. - Personal History Current Tetanus/Diphtheria Vaccine: Yes - Medical/Surgical History Hx Asthma: No Hx Chronic Respiratory Disease: No Hx Diabetes: No Hx Cardiac Disease: Yes Hx Renal Disease: No Hx Cirrhosis: No Hx Alcoholism: No Hx HIV/AIDS: No Hx Splenectomy or Spleen Trauma: No Other PMH: CAD, cataract surgery, oral surgery. 1 stent, hyperlipidemia, shingles,. bacteremia in april 2017 - Social History Smoking Status: Former smoker Constitutional: Initial Vital Signs Temperature (C) 37.8 C 08/01/17 20:25 Heart Rate 123 H 08/01/17 20:25 Respiratory Rate 18 08/01/17 20:25 Blood Pressure 122/60 H 08/01/17 20:25 O2 Sat (%) 92 08/01/17 20:25 O2 Delivery Mode Room Air Allergies/Adverse Reactions: ibuprofen Allergy (Verified 04/23/17 08:55) Hives Home Medications: Medication Instructions Recorded Aspirin EC [Aspirin EC 81 mg (*)] 81 mg PO DAILY 09/24/16 Clopidogrel Bisulfate [Plavix (*)] 75 mg PO DAILY #0 tab 09/26/16 Famotidine [Pepcid 20 MG (*)] 20 mg PO BID 04/23/17 Multivitamins [Multivitamin (*)] 1 each PO DAILY 04/23/17 Pravastatin Sodium [Pravachol] 40 mg PO DAILY 04/23/17 Medical Decision Making - Diagnostics Imaging Results: Imaging Impressions Chest X-Ray 08/01/17 20:54 Impression: Stable negative chest. Imaging: I viewed and interpreted images myself ED Course/Re-evaluation: This is a 77 y/o male who presents with a few-hour history of fever and chills. He was admitted three months ago for bacteremia that was eventually attributed to diverticulitis. He had a colonoscopy 2-3 weeks ago that showed diverticulosis , but no active infection. He is warm to the touch, tachycardic, has dry mucous membranes, with distant breath sounds. His temperature is 37.8degrees. He has had an influenza vaccination. His abdomen is benign. Plan for IV, sepsis labs, chest x-ray, and symptom management. 1000mg PO Tylenol and 1L IV NS administered. Negative chest x-ray. CBC, CHEM, urine, lactate unremarkable. Reassessed patient at 10:00 p.m. and discussed work up. His abdomen remains soft and nontender. Lungs are clear. He is afebrile. I've recommended following up with his PCP for unimproved symptoms and using Tylenol for fever control. Return precautions discussed. He and his family member agree with this plan. He understands that the etiology of his fever has not been discovered. He is not ill or toxic appearing. I feel that he can safely return home and am confident that he will return if something changes for the worse. He also understands that the blood cultures will not return for 2-3 days and that the respiratory pathogen panel will take hours. He does not want to wait for the respiratory pathogen panel. I doubt that this is influenza or, if it is, it is very early on. He has no respiratory symptoms. Blood pressure at discharge was measured to be 100/55. He does not feel lightheaded or dizzy when standing. His heart rate is just over 100. He has received 1 L of IV fluid. Differential Diagnosis: Fever in adults including but not limited to bacteremia, diverticulitis, pneumonia, urinary tract infection, viral syndrome, and influenza. - Data Points Laboratory Results: Laboratory Results 08/01/17 21:00 08/01/17 21:00 08/01/17 08/01/17 08/01/17 21:00 21:00 21:00 WBC 7.58 10^3/uL 10^3/uL (3.80-9.50) RBC 4.72 10^6/uL 10^6/uL (4.40-6.38) Hgb 16.3 g/dL g/dL (13.7-17.5) Hct 44.8 % % (40.0-51.0) MCV 94.9 fL fL (81.5-99.8) MCH 34.5 pg H pg (27.9-34.1) MCHC 36.4 g/dL g/dL (32.4-36.7) RDW 14.0 % % (11.5-15.2) Plt Count 143 10^3/uL L 10^3/uL (150-400) MPV 10.0 fL fL (8.7-11.7) Neut % (Auto) 96.5 % H % (39.3-74.2) Lymph % (Auto) 2.4 % L % (15.0-45.0) [place] % (Auto) 0.8 % L % (4.5-13.0) Eos % (Auto) 0.1 % L % (0.6-7.6) Baso % (Auto) 0.1 % L % (0.3-1.7) Nucleat RBC Rel Count 0.0 % % (0.0-0.2) Absolute Neuts (auto) 7.31 10^3/uL H 10^3/uL (1.70-6.50) Absolute Lymphs (auto) 0.18 10^3/uL L 10^3/uL (1.00-3.00) Absolute Monos (auto) 0.06 10^3/uL L 10^3/uL (0.30-0.80) Absolute Eos (auto) 0.01 10^3/uL L 10^3/uL (0.03-0.40) Absolute Basos (auto) 0.01 10^3/uL L 10^3/uL (0.02-0.10) Absolute Nucleated RBC 0.00 10^3/uL 10^3/uL (0-0.01) Immature Gran % 0.1 % % (0.0-1.1) Immature Gran # 0.01 10^3/uL 10^3/uL (0.00-0.10) PT 14.3 SEC SEC (12.0-15.0) INR 1.12 (0.83-1.16) APTT 25.3 SEC SEC (23.0-38.0) VBG Lactic Acid Sodium 138 mEq/L mEq/L (134-144) Potassium 3.7 mEq/L mEq/L (3.5-5.2) Chloride 102 mEq/L mEq/L (97-110) Carbon Dioxide 24 mEq/l mEq/l (22-31) Anion Gap 12 mEq/L mEq/L (8-16) BUN 19 mg/dL mg/dL (7-23) Creatinine 1.1 mg/dL mg/dL (0.7-1.3) Estimated GFR > 60 Glucose 133 mg/dL H mg/dL (70-100) Calcium 9.2 mg/dL mg/dL (8.5-10.4) Total Bilirubin 0.7 mg/dL mg/dL (0.1-1.4) Urine Color Urine Appearance Urine pH Ur Specific [place] Urine Protein Urine Ketones Urine Blood Urine Nitrate Urine Bilirubin Urine Urobilinogen Ur Leukocyte Esterase Urine Glucose 08/01/17 08/01/17 21:00 20:40 WBC RBC Hgb Hct MCV MCH MCHC RDW Plt Count MPV Neut % (Auto) Lymph % (Auto) [place] % (Auto) Eos % (Auto) Baso % (Auto) Nucleat RBC Rel Count Absolute Neuts (auto) Absolute Lymphs (auto) Absolute Monos (auto) Absolute Eos (auto) Absolute Basos (auto) Absolute Nucleated RBC Immature Gran % Immature Gran # PT INR APTT VBG Lactic Acid 2.1 mmol/L mmol/L (0.7-2.1) Sodium Potassium Chloride Carbon Dioxide Anion Gap BUN Creatinine Estimated GFR Glucose Calcium Total Bilirubin Urine Color YELLOW Urine Appearance HAZY Urine pH 7.0 (5.0-7.5) Ur Specific [place] 1.016 (1.002-1.030) Urine Protein NEGATIVE (NEGATIVE) Urine Ketones NEGATIVE (NEGATIVE) Urine Blood NEGATIVE (NEGATIVE) Urine Nitrate NEGATIVE (NEGATIVE) Urine Bilirubin NEGATIVE (NEGATIVE) Urine Urobilinogen NEGATIVE EU EU (0.2-1.0) Ur Leukocyte Esterase NEGATIVE (NEGATIVE) Urine Glucose NEGATIVE (NEGATIVE) Medications Given: Discontinued Medications Acetaminophen (Tylenol) 1,000 mg PO EDNOW ONE Stop: 08/01/17 21:01 Last Admin: 08/01/17 21:02 Dose: 1,000 mg Sodium Chloride (Ns) 1,000 mls @ 0 mls/hr IV EDNOW ONE; Wide Open PRN Reason: Protocol Stop: 08/01/17 21:18 Last Admin: 08/01/17 21:27 Dose: 1,000 mls Departure - Departure Disposition: Home, Routine, Self-Care Clinical Impression: Chills Fever Qualifiers: Fever type: due to other condition Qualified Code(s): R50.81 - Fever presenting with conditions classified elsewhere Condition: Good Instructions: Acetaminophen (By mouth), Fever in Adults (ED) Additional Instructions: 1. Take 650mg Tylenol every 4-6 hours as needed for fever for the next few days. Do not exceed 3000mg in a 24-hour period. 2. Follow up with your primary care provider for unimproved symptoms over the next 2-3 days. 3. Return to the ED for uncontrollable fever or chills, shortness of breath, chest pain, vomiting, or other worsening of condition. Referrals: Marty Shea DO [Primary Care Provider] - As per Instructions Report Scribed for: Keisha Lugo Report Scribed by: January Ugalde Date of Report: 08/01/17 Time of Report: 20:40 Physician Review and Approval Statement: 08/01/17 20:36 Portions of this note were transcribed by the medical services manager. I, Dr. Keisha Lugo, personally performed the history, physical exam, and medical decision- making; and confirmed the accuracy of the information in the transcribed note.
[2017-08-01] MEDS ORDERED: ACETAMINOPHEN 500 MG TAB PO ONE (21:00)
[2017-08-01] MEDS ORDERED: NS 1,000 ML IV ONE (21:17)
[2017-08-01 21:39] LABS: PLATELET COUNT 143 10^3/uL (150-400)
[2017-08-01 21:48] LABS: INR 1.12 (0.83-1.16); PROTIME(PATIENT) 14.3 SEC (12.0-15.0)
[2017-08-01 22:28] VITALS: BP 100/55; PULSE 106; TEMP 98.6
== END 2017-08-01 22:27 | disposition home or self-care (01) ==
DX: R78.81 Bacteremia (principal); R50.81 Fever presenting with conditions classified elsewhere; I25.10 Atherosclerotic heart disease of native coronary artery without angina pectoris; E86.9 Volume depletion, unspecified; Z87.891 Personal history of nicotine dependence; Z79.82 Long term (current) use of aspirin; X58.XXXA Exposure to other specified factors, initial encounter; Y92.096 Garden or yard of other non-institutional residence as the place of occurrence of the external cause; Y93.89 Activity, other specified

== ENCOUNTER 2017-08-02 20:45 | Inpatient (IN) | payer OTHER, MEDICARE ==
--- NOTE | 2017-08-02 21:06 | EDPHY ---
H & P Time Seen by Provider: 08/02/17 20:55 HPI/ROS: CHIEF COMPLAINT: Positive blood culture HISTORY OF PRESENT ILLNESS: The patient is a 77 y/o male arriving after his labs indicated a positive blood culture. He has a history of bacteremia in April , no localizing source identified. Yesterday, he had a fever and rigors, similar to the April episode of bacteremia. He presented to the ED and had labs drawn, urinalysis, and a chest X-ray. Today the lab reported that his blood culture was positive for gram-negative rods. He has been asymptomatic since his emergency department visit. No fever. He returned today to seek treatment. REVIEW OF SYSTEMS: Eyes: No visual changes ENT: No sore throat Respiratory: No cough, no shortness of breath Cardiac: No chest pain Gastrointestinal: No nausea, no vomiting, no abdominal pain Genitourinary: No hematuria, no dysuria Musculoskeletal: No leg pain or swelling Skin: No rash Neurological: No headache, no weakness Psychiatric: No depression Past Medical/Surgical History: Bacteremia, CAD, hyperlipidemia, diverticulosis on colonoscopy 3 weeks ago, reflux, macular degeneration Social History: Lives in [employer], has a daughter, retired Smoking Status: Former smoker Physical Exam: General Appearance: Alert, nontoxic, pleasant Eyes: Pupils equal and round, no conjunctival pallor or injection ENT, Mouth: Mucous membranes moist, no pharyngeal erythema, no dental tenderness or gum swelling Neck: Normal inspection, no adenopathy Respiratory: Lungs are clear to auscultation Cardiovascular: Regular rate and rhythm Gastrointestinal: Abdomen is soft and non- tender Neurological: A&O, nonfocal, normal gait Skin: Warm and dry, no rash Extremities: Normal inspection Psychiatric: Mood and affect normal Constitutional: Initial Vital Signs Temperature (C) 37.0 C 08/02/17 20:49 Heart Rate 76 08/02/17 20:49 Respiratory Rate 18 08/02/17 20:49 Blood Pressure 102/54 L 08/02/17 20:49 O2 Sat (%) 97 08/02/17 20:49 O2 Delivery Mode Room Air Allergies/Adverse Reactions: ibuprofen Allergy (Verified 08/02/17 20:51) Hives Home Medications: Medication Instructions Recorded Aspirin EC [Aspirin EC 81 mg (*)] 81 mg PO DAILY 09/24/16 Clopidogrel Bisulfate [Plavix (*)] 75 mg PO DAILY #0 tab 09/26/16 Famotidine [Pepcid 20 MG (*)] 20 mg PO BID 04/23/17 Multivitamins [Multivitamin (*)] 1 each PO DAILY 04/23/17 Pravastatin Sodium [Pravachol] 20 mg PO DAILY 04/23/17 Medical Decision Making ED Course/Re-evaluation: This patient presents with a current bacteremia secondary to gram-negative rods , id pending. He is currently asymptomatic and has normal vital signs. He does not meet SIRS criteria. X-ray from yesterday reviewed and reveals no infiltrate. Urinalysis was normal yesterday. Blood cultures drawn. Invanz 1 g IV given. The hospitalist service was consulted for admission. Differential Diagnosis: Differential diagnosis includes pyelonephritis, cholecystitis, influenza, cellulitis, pneumonia, abscess, meningitis. - Data Points Laboratory Results: Laboratory Results 08/03/17 04:23 08/03/17 04:23 08/03/17 08/03/17 04:23 04:23 WBC 7.30 10^3/uL 10^3/uL (3.80-9.50) RBC 4.19 10^6/uL L 10^6/uL (4.40-6.38) Hgb 14.3 g/dL g/dL (13.7-17.5) Hct 39.7 % L % (40.0-51.0) MCV 94.7 fL fL (81.5-99.8) MCH 34.1 pg pg (27.9-34.1) MCHC 36.0 g/dL g/dL (32.4-36.7) RDW 14.2 % % (11.5-15.2) Plt Count 120 10^3/uL L 10^3/uL (150-400) MPV 10.0 fL fL (8.7-11.7) Neut % (Auto) 82.9 % H % (39.3-74.2) Lymph % (Auto) 7.8 % L % (15.0-45.0) Gladwin % (Auto) 7.7 % % (4.5-13.0) Eos % (Auto) 1.2 % % (0.6-7.6) Baso % (Auto) 0.3 % % (0.3-1.7) Nucleat RBC Rel Count 0.0 % % (0.0-0.2) Absolute Neuts (auto) 6.05 10^3/uL 10^3/uL (1.70-6.50) Absolute Lymphs (auto) 0.57 10^3/uL L 10^3/uL (1.00-3.00) Absolute Monos (auto) 0.56 10^3/uL 10^3/uL (0.30-0.80) Absolute Eos (auto) 0.09 10^3/uL 10^3/uL (0.03-0.40) Absolute Basos (auto) 0.02 10^3/uL 10^3/uL (0.02-0.10) Absolute Nucleated RBC 0.00 10^3/uL 10^3/uL (0-0.01) Immature Gran % 0.1 % % (0.0-1.1) Immature Gran # 0.01 10^3/uL 10^3/uL (0.00-0.10) Sodium 138 mEq/L mEq/L (134-144) Potassium 3.8 mEq/L mEq/L (3.5-5.2) Chloride 105 mEq/L mEq/L (97-110) Carbon Dioxide 25 mEq/l mEq/l (22-31) Anion Gap 8 mEq/L mEq/L (8-16) BUN 20 mg/dL mg/dL (7-23) Creatinine 1.0 mg/dL mg/dL (0.7-1.3) Estimated GFR > 60 Glucose 81 mg/dL mg/dL (70-100) Calcium 8.3 mg/dL L mg/dL (8.5-10.4) Medications Given: Enoxaparin Sodium (Lovenox) 40 mg SC DAILY GENESIS Stop: 01/30/18 08:59 Last Admin: 08/03/17 09:29 Dose: 40 mg Meropenem 1 gm/ Sodium (Chloride) 120 mls @ 120 mls/hr IV Q8HRS GENESIS PRN Reason: Protocol Stop: 09/02/17 10:44 Last Admin: 08/03/17 15:43 Dose: 120 mls Discontinued Medications Ertapenem 1 gm/ Sodium (Chloride) 100 mls @ 200 mls/hr IV EDNOW ONE PRN Reason: Protocol Stop: 08/02/17 21:47 Last Admin: 08/02/17 21:37 Dose: 100 mls Metronidazole/Sodium Chloride (Flagyl 500 Mg (Premix)) 100 mls @ 100 mls/hr IV Q8HRS GENESIS PRN Reason: Protocol Stop: 09/01/17 22:29 Last Admin: 08/03/17 05:20 Dose: 100 mls Departure - Departure Disposition: [facility] Inpatient Acute Clinical Impression: Bacteremia Condition: Fair Report Scribed for: Annetta Bush Report Scribed by: Radha Valera Date of Report: 08/02/17 Time of Report: 21:06 Physician Review and Approval Statement: 08/02/17 21:06 Portions of this note were transcribed by a director of medical review. I personally performed a history, physical exam, medical decision making, and confirmed accuracy of information the transcribed note.
[2017-08-02] MEDS ORDERED: ERTAPENEM 1 GM in NS 100 ML IV ONE (21:18)
[2017-08-02 21:30] LABS: PLATELET COUNT 130 10^3/uL (150-400)
[2017-08-02] MEDS ORDERED: ONDANSETRON DISINTEGRATING 4 MG TAB PO PRN ×2 (21:57)
[2017-08-02] MEDS ORDERED: ONDANSETRON 4 MG/2 ML VIAL IVP PRN ×2 (21:57)
[2017-08-02] MEDS ORDERED: ACETAMINOPHEN 325 MG TAB PO PRN ×2 (21:57)
--- NOTE | 2017-08-02 22:21 | PDGENHP ---
History and Physical - Chief Complaint Fevers - History of Present Illness 77 yo M w/ hx of CAD and admission earlier this year for bacteremia called in to ED after blood cultures became positive. Patient came to ED yesterday with complaints of one day of fevers and chills. He was sent home but then called in today after cultures grew GNRs. He had a very similar presentation in April of this, during which the source was thought to be mild diverticulitis. He was treated with antibiotics and has done well in the interim. He currently denies any other complaints including blood in stool. Of note, he had a colonoscopy and EGD with Dr. Billingsley 2 weeks ago that only showed a hiatal hernia. History Information - Allergies/Home Medication List Allergies/Adverse Reactions: ibuprofen Allergy (Verified 08/02/17 20:51) Hives Home Medications: Aspirin EC [Aspirin EC 81 mg (*)] 81 mg PO DAILY 09/24/16 [Last Taken 08/02/17] Famotidine [Pepcid 20 MG (*)] 20 mg PO BID 04/23/17 [Last Taken 08/02/17 AM] Multivitamins [Multivitamin (*)] 1 each PO DAILY 04/23/17 [Last Taken 08/02/17] Pravastatin Sodium [Pravachol] 20 mg PO DAILY 04/23/17 [Last Taken 08/02/17] I have personally reviewed and updated: family history, medical history - Past Medical History coronary artery disease (s/p stent to LAD 09/2016), hyperlipidemia Additional medical history: CAD - Surgical History Reports: angioplasty Additional surgical history: oral surgery. b/l cataract repair. tonsillectomy - Family History Positive for: stroke Additional family history: both parents: CVA - Social History Smoking Status: Former smoker Additional social history: Patient lives with his girlfriend. Is independent. 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 Review of Systems Review of Systems: ROS: 10pt was reviewed & negative except for what was stated in HPI & below Physical Exam Physical Exam: Temp Pulse Resp BP Pulse Ox 36.3 C 69 16 90/52 L 95 08/02/17 21:57 08/02/17 21:57 08/02/17 21:57 08/02/17 21:57 08/02/17 21:57 Constitutional: no apparent distress, appears nourished Eyes: PERRL, EOMI Ears, Nose, Mouth, Throat: moist mucous membranes, no oral mucosal ulcers Cardiovascular: regular rate and rhythym, no murmur, rub, or gallop Respiratory: no respiratory distress, no rales or rhonchi Gastrointestinal: normoactive bowel sounds, soft, non-tender abdomen Skin: warm, normal color Musculoskeletal: full muscle strength, no muscle tenderness Neurologic: AAOx3, CN II-XII Intact Psychiatric: interacting appropriately, not anxious Lab Data & Imaging Review 08/02/17 21:13 08/02/17 21:13 WBC 9.27 10^3/uL (3.80-9.50) 08/02/17 21:13 RBC 4.44 10^6/uL (4.40-6.38) 08/02/17 21:13 Hgb 15.4 g/dL (13.7-17.5) 08/02/17 21:13 Hct 42.7 % (40.0-51.0) 08/02/17 21:13 MCV 96.2 fL (81.5-99.8) 08/02/17 21:13 MCH 34.7 pg (27.9-34.1) H 08/02/17 21:13 MCHC 36.1 g/dL (32.4-36.7) 08/02/17 21:13 RDW 14.2 % (11.5-15.2) 08/02/17 21:13 Plt Count 130 10^3/uL (150-400) L 08/02/17 21:13 MPV 9.9 fL (8.7-11.7) 08/02/17 21:13 Neut % (Auto) 86.2 % (39.3-74.2) H 08/02/17 21:13 Lymph % (Auto) 6.7 % (15.0-45.0) L 08/02/17 21:13 Sanders % (Auto) 5.7 % (4.5-13.0) 08/02/17 21:13 Eos % (Auto) 0.8 % (0.6-7.6) 08/02/17 21:13 Baso % (Auto) 0.3 % (0.3-1.7) 08/02/17 21:13 Nucleat RBC Rel Count 0.0 % (0.0-0.2) 08/02/17 21:13 Absolute Neuts (auto) 7.99 10^3/uL (1.70-6.50) H 08/02/17 21:13 Absolute Lymphs (auto) 0.62 10^3/uL (1.00-3.00) L 08/02/17 21:13 Absolute Monos (auto) 0.53 10^3/uL (0.30-0.80) 08/02/17 21:13 Absolute Eos (auto) 0.07 10^3/uL (0.03-0.40) 08/02/17 21:13 Absolute Basos (auto) 0.03 10^3/uL (0.02-0.10) 08/02/17 21:13 Absolute Nucleated RBC 0.00 10^3/uL (0-0.01) 08/02/17 21:13 Immature Gran % 0.3 % (0.0-1.1) 08/02/17 21:13 Immature Gran # 0.03 10^3/uL (0.00-0.10) 08/02/17 21:13 VBG Lactic Acid 2.0 mmol/L (0.7-2.1) 08/02/17 21:13 Sodium 135 mEq/L (134-144) 08/02/17 21:13 Potassium 3.8 mEq/L (3.5-5.2) 08/02/17 21:13 Chloride 102 mEq/L (97-110) 08/02/17 21:13 Carbon Dioxide 24 mEq/l (22-31) 08/02/17 21:13 Anion Gap 9 mEq/L (8-16) 08/02/17 21:13 BUN 22 mg/dL (7-23) 08/02/17 21:13 Creatinine 1.1 mg/dL (0.7-1.3) 08/02/17 21:13 Estimated GFR > 60 08/02/17 21:13 Glucose 89 mg/dL (70-100) 08/02/17 21:13 Calcium 8.7 mg/dL (8.5-10.4) 08/02/17 21:13 Total Bilirubin 1.0 mg/dL (0.1-1.4) 08/02/17 21:13 Assessment & Plan Assessment: 77 yo M w/ CAD presents with GNR bacteremia likely 2/2 GI source. Plan: 1. GNR bacteremia - Second episode, originally occurred in April of 2017. This was thought to be due to mild diverticulitis. He recently had a colonoscopy and EGD importantly ruling out malignancy. Noting last cultures speciated as Bacteroides, GI source is most likely etiology. - CTX and Flagyl for empiric intra-abdominal coverage - Will repeat CT A/P - Repeat blood cultures ordered - ID consult 2. CAD - On DAPT and statin, s/p 1 stent last year after abnormal nuclear stress test. Diet - Regular Code - Full Ppx - LMWH Dispo - Admit to observation status
[2017-08-02] MEDS ORDERED: IOPAMIDOL (ISOVUE-300) 100 ML BTL ONE ×2 (22:30)
[2017-08-03 04:56] LABS: PLATELET COUNT 120 10^3/uL (150-400)
[2017-08-03] MEDS: ENOXAPARIN 40 MG/0.4 ML SYR SC SCH ×2 (09:29)
--- NOTE | 2017-08-03 12:39 | ASMTCASEMG ---
Living Arrangements What is your living Answers: Alone arrangement? Who do you live with? Type Of Residence What kind of residence do Answers: House you live in? Discharge Plan Comments Coordination Status Comments Notes: Pt is a 77 y/o man admitted w/ bacteremia. Pt was admitted to [facility] on 04/23 for a similar presentation. Pt is currently on IV antibiotics. Pt may need outpatient infusion or home infusion if pt needs to continue w/ IV antibiotics at time of d/c. ID consult has been ordered and awaiting recommendation. Plan: TBD at this time Date Signed: 08/03/2017 12:39 PM Electronically Signed By:JOVAN Weir
--- NOTE | 2017-08-03 12:39 | ASMTCASEMG ---
Living Arrangements What is your living Answers: Alone arrangement? Who do you live with? Type Of Residence What kind of residence do Answers: House you live in? Discharge Plan Comments Coordination Status Comments Notes: Pt is a 77 y/o man admitted w/ bacteremia. Pt was admitted to [facility] on 04/23 for a similar presentation. Pt is currently on IV antibiotics. Pt may need outpatient infusion or home infusion if pt needs to continue w/ IV antibiotics at time of d/c. ID consult has been ordered and awaiting recommendation. Plan: TBD at this time Date Signed: 08/03/2017 12:39 PM Electronically Signed By:JOVAN Weir
--- NOTE | 2017-08-03 12:39 | ASMTCASEMG ---
Living Arrangements What is your living Answers: Alone arrangement? Who do you live with? Type Of Residence What kind of residence do Answers: House you live in? Discharge Plan Comments Coordination Status Comments Notes: Pt is a 77 y/o man admitted w/ bacteremia. Pt was admitted to [facility] on 04/23 for a similar presentation. Pt is currently on IV antibiotics. Pt may need outpatient infusion or home infusion if pt needs to continue w/ IV antibiotics at time of d/c. ID consult has been ordered and awaiting recommendation. Plan: TBD at this time Date Signed: 08/03/2017 12:39 PM Electronically Signed By:JOVAN Weir
[2017-08-03] MEDS: MEROPENEM 1 GM in NS 100 ML IV SCH ×3 (12:48→23:03)
[2017-08-03] MEDS ORDERED: MEROPENEM 1 GM in NS 100 ML IV SCH ×4 (14:00)
--- NOTE | 2017-08-03 16:24 | HOSPPROG ---
Hospitalist Progress Note Assessment/Plan: # Acute pseudomonal bacteremia - CT abd (personally reviewed and interpreted) prostatic enlargement and bladder thickening c/w possible infection less suspicion for GI source based on CT abdomen findings - oxygen saturations 96% on RA - consult ID this am - awaiting sensitivities - change to meropenem until sensitivities are back - anticipate possible dc tomorrow on 14 days PO abx # CAD - s/p stent - no active chest pain complaints - cont home meds # HLD - cont home meds # # dispo - > 2MN as requires ongoing IV abx until sensitivities available I have discussed the case with Dr. Issa we will continue with Meropenem today Subjective: no pain - some urgency prior to admit Objective: Vital Signs Temp Pulse Resp BP Pulse Ox 36.6 C 66 16 96/52 L 92 08/03/17 15:28 08/03/17 15:28 08/03/17 15:28 08/03/17 15:28 08/03/17 15:28 Laboratory Results 08/03/17 04:23 08/03/17 04:23 08/02/17 08/03/17 08/04/17 05:59 05:59 05:59 Intake Total 300 Balance 300 - Physical Exam Constitutional: appears nourished Eyes: anicteric sclera Ears, Nose, Mouth, Throat: moist mucous membranes Cardiovascular: regular rate and rhythym Respiratory: no respiratory distress, no rales or rhonchi Gastrointestinal: normoactive bowel sounds Genitourinary: no bladder fullness Skin: warm Musculoskeletal: No asymmetric calves Neurologic: AAOx3 Psychiatric: interacting appropriately Lymph, Heme, Immunologic: no cervical LAD ICD10 Worksheet Patient Problems: Problems Problem Status Onset Bacteremia Acute Chest pain Acute
[2017-08-04] MEDS: MEROPENEM 1 GM in NS 100 ML IV SCH ×2 (05:04→13:56)
[2017-08-04 08:23] VITALS: BP 98/59; PULSE 60; RESP 12; TEMP 98.2; O2SAT 92
[2017-08-04] MEDS: ENOXAPARIN 40 MG/0.4 ML SYR SC SCH ×2 (09:53)
--- NOTE | 2017-08-04 12:25 | PCMIDPN ---
Assessment/Plan: Assessment/Plan: 1. Pseudomonas bacteremia likely urinary source: -Pt interviewed, examined and care coordinated with hospitalist team -Full consult dictated, please see for details. Objective: Vital Signs Temp Pulse Resp BP Pulse Ox 36.8 C 60 12 98/59 L 92 08/04/17 08:00 08/04/17 08:00 08/04/17 08:00 08/04/17 08:00 08/04/17 08:00 08/03/17 08/04/17 08/05/17 05:59 05:59 05:59 Intake Total 480 Balance 480 ICD10 Worksheet Patient Problems: Problems Problem Status Onset Bacteremia Acute Chest pain Acute
--- NOTE | 2017-08-04 13:28 | PDMN ---
Medical Necessity Medical necessity: Change to IP, as of 08/03/17, per MD; los >2 mn for ongoing eval/management of acute pseudomonal bacteremia; hx CAD; per progress note 08/03
[2017-08-04] MEDS ORDERED: CLOPIDOGREL BISULFATE 75 MG TAB PO SCH ×2 (14:45)
[2017-08-04] MEDS ORDERED: ASPIRIN EC 81 MG TAB PO SCH ×2 (14:45)
--- NOTE | 2017-08-04 14:49 | GCON ---
[f rep st] CONSULTATION INFECTIOUS DISEASE CONSULTATION DATE OF CONSULTATION: 08/03/2017 REFERRING PHYSICIAN: Mary Roca MD REASON FOR CONSULTATION: Bacteremia. CHIEF COMPLAINT: Fever. HISTORY OF PRESENT ILLNESS: This is a 77-year-old, male with a past medical history signif icant for coronary artery disease and recent bout of diverticulitis in April of 2017. He came in for 1 day's worth of symptoms on August 01, of fevers or shaking chills. He came into the ED for further evaluation. At that time, he was noted to have a normal white blood cell count with a le ft shift. He had blood cultures on 2 sets that were done, but he was sent home as they thought he cheng d a viral syndrome. He was called back the next day when his blood cultures became positive for gram -negative rods. By Wednesday he was actually starting to feel better and Wednesday he continued to feel b olivia. He did not have any more fevers or shaking chills. Blood cultures have come out preliminaril y with Pseudomonas. He did not have a urinalysis or urine culture done on his readmission. Repeat b lood cultures were done. He was placed on empiric ceftriaxone and Flagyl until his blood cultures were noted to be Pseudomonas , and then he was changed to meropenem early this morning by the hospitalist team. He underwent a CA T scan of the abdomen and pelvis, which showed that he had enlarged prostate with thickening of the b ladder wall with possible bladder outlet obstruction. No recurrent diverticulitis. Infectious Disea se is now consulted for further evaluation and opinion regarding above. His previous bacteremia back in April 2015 was with Bacteroides. He was treated with Levaquin for 2 weeks. REVIEW OF SYSTEMS: CONSTITUTIONAL: Fevers and shaking chills of 1 day nature. None since then. HE AD: Denies any headache. EYES: No change in vision. ENT: No sore throat, difficulty swallowing, ear pain, or ear drainage. CARDIOVASCULAR: Denies any chest pain or rapid heartbeat. RESPIRATORY: Denies any sputum production, shortness of breath, or cough. GI: No nausea, vomiting, abdominal pa in, diarrhea present. : Has been complaining of increased urinary frequency recently. He does cheng ve some trouble with starting of his urine flow, but then once it gets started, he feels he is able t o empty his bladder completely. He denies any perineal pain or blood in the urine. MUSCULOSKELETAL: Denies any joint pains or muscle aches. SKIN: No rashes. The rest of the 10-point review of syst ems essentially negative except for as above. PAST MEDICAL HISTORY: Significant for coronary artery disease and dyslipidemia. PAST SURGICAL HISTORY: Significant for cataract surgery, oral surgery, and tonsillectomy. SOCIAL HISTORY: Former smoker. Drinks alcohol socially. Lives with his girlfriend. 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 FAMILY HISTORY: Significant for CVA. MEDICATIONS: As per DEC. ALLERGIES: Ibuprofen to which he gets hives. PHYSICAL EXAMINATION: VITAL SIGNS: Temperature current 36.7. Pulse is 65, blood pressure 84/48, re spiratory rate is 14. Saturations are 92% on room air. GENERAL: At this time, he is resting in bed in no acute respiratory distress. Awake, alert, and oriented x3. HEENT: Head is normocephalic, at raumatic. No icterus or petechiae. He has conjunctival injection present. Oropharynx: No posterio r pharyngeal erythema or thrush. CARDIOVASCULAR: S1, S2. Regular rhythm. No murmurs appreciated. RESPIRATORY: Clear to auscultate bilaterally. No rhonchi or rales appreciated. ABDOMEN: Positive bowel sounds in all 4 quadrants. Soft, nontender, nondistended. No organomegaly appreciated. EXTR EMITIES: No lower extremity edema. MUSCULOSKELETAL: No obvious joint effusions or pain on palpatio n of the joints. SKIN: No obvious rashes. LABS: Please note that he does have some pigmentation changes on the chest or upper trunk. LABORATORY/IMAGING DATA: White blood cell count is 7.3, hemoglobin 14.3, platelets are 120. Neutrop hil count is 82%. Sodium 138, potassium 3.8, chloride 105, bicarb 25. BUN is 20. Creatinine is 1.0 . No urinalysis was done. Blood cultures x2 sets with 1 out of 2 bottles from each set with Pseudom onas aeruginosa. Sensitivities are pending. Followup blood cultures sent out on the on readmit are pending. CAT scan as stated above. ASSESSMENT: Pseudomonas bacteremia, likely a urinary source. PLAN: Will continue with meropenem for now while sensitivities are pending. Likely source is urinar y given his CAT scan findings. He may benefit with urologic followup at some point. Plan of care wa s discussed in detail with the patient. Care was coordinated with the hospitalist team. I thank you very much for providing this opportunity to care for your patient in consultation. /[id number]/MODL
--- NOTE | 2017-08-04 19:12 | PDDCSUM ---
Discharge Summary Discharge Summary: DISCHARGE SUMMARY FOLLOW-UP ITEMS: Outpatient General surgery consultation, repeat blood cultures to be followed up by primary care provider DATE OF ADMISSION: 08/02/2017 DATE OF DISCHARGE: 08/04/2017 DISCHARGE DIAGNOSES: 1. Acute pseudomonal bacteremia 2. Chronic coronary artery disease 3. Chronic Diverticulosis CONSULTATIONS: Infectious Disease PROCEDURES / IMAGING: Abdominal CT demonstrating diverticulosis, no mass CHIEF COMPLAINT: Bacteremia SUBJECTIVE: Patient is feeling well at time discharge, he is not having any abdominal pain PHYSICAL EXAM ON DISCHARGE: Systolic blood pressure 105, heart rate 60, afebrile overnight, satting on room air, abdomen is soft nontender nondistended LABS ON DISCHARGE: Repeat blood cultures are no growth today HOSPITAL COURSE BY PROBLEM: The patient presented with bacteremia after cultures had been drawn on August 01, and has been identified as growing Pseudomonas. The patient was contacted and presented back to the hospital for IV antibiotics as well as Infectious Disease assessment. He was initiated on meropenem, which was transitioned to levofloxacin once the sensitivities became available. Abdominal CT was performed to evaluate for possible source, and diverticulosis was noted. Given the patient has had recent diverticulitis episodes, the likely source is diverticular, and Dr. Eliud Tapia recommended an urgent outpatient General surgery consultation, to consider source control prior to discontinuing antibiotics. The patient will be continued on 2 weeks of levofloxacin from his most recent blood cultures, and he will follow up with Dr. Felipa Pederson as well as Dr. Montez Alonos. DISCHARGE MEDICATIONS: Please see official discharge medication reconciliation sheet in chart , continue home medication did not leave on 750 mg daily. DISCHARGE INSTRUCTIONS: Please follow up with Dr. Cordoba within 1 week.
--- NOTE | 2017-08-04 20:39 | PCMIDPN ---
Assessment/Plan: Assessment: psuedomonas bacteremia -- unclear source but UAs over the past 2 days do not show significant abnormality. Patient does have a histroy of prior GI bacteremia in April of this year that was from rectosigmoid diverticulitis. Suspect this is the same source. He is however clinically stable and OK to discharge home to complete a 14 day course of Levaquin. Plan: 1) Discharge home on po levaquin to complete a 14 day course. 2) Follow up in office in one week. 3) Consultation as outpatient with general surgery to determine risk/benefit ratio of having elective sigmoidectomy. 08/04/17 20:35 Subjective: Patient is sitting up in bed asking to go home. No fevers. No abdominal pain. Feels well. Objective: meropenem Vital Signs Temp Pulse Resp BP Pulse Ox 36.8 C 60 12 98/59 L 92 08/04/17 08:00 08/04/17 08:00 08/04/17 08:00 08/04/17 08:00 08/04/17 08:00 08/03/17 08/04/17 08/05/17 05:59 05:59 05:59 Intake Total 480 Balance 480 - Physical Exam General Appearance: WD/WN, alert, no apparent distress, thin, non-toxic Respiratory: lungs clear, normal breath sounds, No respiratory distress Cardiac/Chest: regular rate, rhythm, No tachycardia Abdomen: non-tender, soft Skin: normal color, warm/dry, No rash Neuro/Psych: alert, normal mood/affect, oriented x 3 ICD10 Worksheet Patient Problems: Problems Problem Status Onset Bacteremia Acute Chest pain Acute
[2017-08-04] MEDS ORDERED: FAMOTIDINE 20 MG TAB PO SCH ×2 (21:00)
[2017-08-05] MEDS ORDERED: PRAVASTATIN SODIUM 40 MG TAB PO SCH ×2 (09:00)
[2017-08-05] MEDS ORDERED: MULTIVITAMINS 1 EACH TAB PO SCH ×2 (09:00)
== END 2017-08-04 15:25 | disposition home or self-care (01) | DRG 392 ==
LOC: INTOOBSV 21:21 → F3E 21:53 → OBSVTOIN 08-03 14:53
PROVIDERS: ADMIT Internal Medicine; ATTEND Hospitalist
DX: K57.90 Diverticulosis of intestine, part unspecified, without perforation or abscess without bleeding (principal); R78.81 Bacteremia; B96.5 Pseudomonas (aeruginosa) (mallei) (pseudomallei) as the cause of diseases classified elsewhere; I25.10 Atherosclerotic heart disease of native coronary artery without angina pectoris; E78.5 Hyperlipidemia, unspecified; Z87.891 Personal history of nicotine dependence; H35.30 Unspecified macular degeneration; K21.9 Gastro-esophageal reflux disease without esophagitis; Z95.5 Presence of coronary angioplasty implant and graft
CPT/HCPCS: 96365; G0378; J0696; J1335; J1650; J2185; Q9967

== ENCOUNTER 2017-10-02 15:17 | Emergency (ER) | payer OTHER, MEDICARE ==
[2017-10-02 15:27] VITALS: TEMP 98.1
--- NOTE | 2017-10-02 15:33 | EDPHY ---
H & P Stated Complaint: hx bacteremia (unknown cause) feeling same/rigors/chills Time Seen by Provider: 10/02/17 15:30 HPI/ROS: CHIEF COMPLAINT: Subjective fever, history of recurrent bacteremia HISTORY OF PRESENT ILLNESS: The patient presents to the ED for subjective fever for the past several days. The patient has a history of bacteremia which occurred twice over the past 6 months. Initially the patient had E coli and subsequently had a Klebsiella bacteremia. The patient had no obvious source for this bacteremia. He did undergo an unremarkable cystoscopy. The patient has not been on recent antibiotics. He denies any acute abdominal pain, dysuria , back pain, cough or infectious symptoms. The patient has otherwise been well. He has no complaints of vomiting or diarrhea. REVIEW OF SYSTEMS: A comprehensive 10 point review of systems is otherwise negative aside from elements mentioned in the history of present illness. Source: Patient - Personal History Current Tetanus/Diphtheria Vaccine: Yes - Medical/Surgical History Hx Asthma: No Hx Chronic Respiratory Disease: No Hx Diabetes: No Hx Cardiac Disease: Yes Hx Renal Disease: No Hx Cirrhosis: No Hx Alcoholism: No Hx HIV/AIDS: No Hx Splenectomy or Spleen Trauma: No Other PMH: CAD, cataract surgery, oral surgery. 1 stent, hyperlipidemia, shingles,. bacteremia in april 2017, HIATAL HERNIA, DIVERTICULOSIS - Social History Smoking Status: Former smoker - Physical Exam Exam: General Appearance: Alert, no distress Eyes: Pupils equal and round no pallor or injection ENT, Mouth: Mucous membranes moist Respiratory: There are no retractions, lungs are clear to auscultation Cardiovascular: Regular rate and rhythm Gastrointestinal: Abdomen is soft and nontender, no masses, bowel sounds normal Neurological: A&O, normal motor function, normal sensory exam, normal cranial nerves Skin: Warm and dry, no rashes Musculoskeletal: Neck is supple nontender Extremities: symmetrical, full range of motion Constitutional: Initial Vital Signs Temperature (C) 36.7 C 10/02/17 15:25 Heart Rate 76 10/02/17 15:25 Respiratory Rate 18 10/02/17 15:25 Blood Pressure 141/69 H 10/02/17 15:25 O2 Sat (%) 96 10/02/17 15:25 O2 Delivery Mode Room Air Allergies/Adverse Reactions: ibuprofen Allergy (Verified 10/02/17 15:23) Hives Home Medications: Medication Instructions Recorded Aspirin EC [Aspirin EC 81 mg (*)] 81 mg PO DAILY 09/24/16 Clopidogrel Bisulfate [Plavix (*)] 75 mg PO DAILY #0 tab 09/26/16 Famotidine [Pepcid 20 MG (*)] 20 mg PO BID 04/23/17 Multivitamins [Multivitamin (*)] 1 each PO DAILY 04/23/17 Pravastatin Sodium [Pravachol] 20 mg PO DAILY 04/23/17 Flomax 10/02/17 Omeprazole 10/02/17 Medical Decision Making ED Course/Re-evaluation: ED course: I reviewed the results of the patient's past medical records including his recent hospitalizations for bacteremia. The patient had an IV established. Blood cultures x2 are obtained. The patient is nontoxic and well-appearing. He is afebrile with stable vital signs. Patient's CBC serum chemistry me venous lactate are within normal limits. Urinalysis demonstrates no evidence of an acute infection. I did cathie Issa from infectious disease. She does recommend influenza testing which will be performed. The patient will not be treated with antibiotics at this point time pending the results of his culture. He has been advised to return to the ED for the development of more significant symptoms, pain, vomiting or other concerns. The patient is asked to contact the emergency department in the next 1-2 days to follow up on the results of his blood culture. We will also call him at home which should his blood culture becomes positive. Differential Diagnosis: Differential diagnosis considered includes bacteremia, urinary tract infection, influenza, viral syndrome - Data Points Laboratory Results: Laboratory Results 10/02/17 15:52 10/02/17 15:52 10/02/17 10/02/17 10/02/17 17:00 16:26 15:52 WBC RBC Hgb Hct MCV MCH MCHC RDW Plt Count MPV Neut % (Auto) Lymph % (Auto) [place] % (Auto) Eos % (Auto) Baso % (Auto) Nucleat RBC Rel Count Absolute Neuts (auto) Absolute Lymphs (auto) Absolute Monos (auto) Absolute Eos (auto) Absolute Basos (auto) Absolute Nucleated RBC Immature Gran % Immature Gran # VBG Lactic Acid Sodium 141 mEq/L mEq/L (134-144) Potassium 4.9 mEq/L mEq/L (3.5-5.2) Chloride 106 mEq/L mEq/L (97-110) Carbon Dioxide 24 mEq/l mEq/l (22-31) Anion Gap 11 mEq/L mEq/L (8-16) BUN 18 mg/dL mg/dL (7-23) Creatinine 1.0 mg/dL mg/dL (0.7-1.3) Estimated GFR > 60 Glucose 125 mg/dL H mg/dL (70-100) Calcium 9.2 mg/dL mg/dL (8.5-10.4) Urine Color YELLOW Urine Appearance CLEAR Urine pH 7.0 (5.0-7.5) Ur Specific [place] 1.017 (1.002-1.030) Urine Protein NEGATIVE (NEGATIVE) Urine Ketones NEGATIVE (NEGATIVE) Urine Blood NEGATIVE (NEGATIVE) Urine Nitrate NEGATIVE (NEGATIVE) Urine Bilirubin NEGATIVE (NEGATIVE) Urine Urobilinogen NEGATIVE EU EU (0.2-1.0) Ur Leukocyte Esterase NEGATIVE (NEGATIVE) Urine Glucose NEGATIVE (NEGATIVE) Nasal Influenza A PCR NEGATIVE FOR FLU A (NEGATIVE) Nasal Influenza B PCR NEGATIVE FOR FLU B (NEGATIVE) 10/02/17 10/02/17 15:52 15:52 WBC 7.62 10^3/uL 10^3/uL (3.80-9.50) RBC 4.70 10^6/uL 10^6/uL (4.40-6.38) Hgb 16.7 g/dL g/dL (13.7-17.5) Hct 45.9 % % (40.0-51.0) MCV 97.7 fL fL (81.5-99.8) MCH 35.5 pg H pg (27.9-34.1) MCHC 36.4 g/dL g/dL (32.4-36.7) RDW 13.2 % % (11.5-15.2) Plt Count 166 10^3/uL 10^3/uL (150-400) MPV 10.2 fL fL (8.7-11.7) Neut % (Auto) 76.5 % H % (39.3-74.2) Lymph % (Auto) 12.2 % L % (15.0-45.0) [place] % (Auto) 10.1 % % (4.5-13.0) Eos % (Auto) 0.5 % L % (0.6-7.6) Baso % (Auto) 0.3 % % (0.3-1.7) Nucleat RBC Rel Count 0.0 % % (0.0-0.2) Absolute Neuts (auto) 5.83 10^3/uL 10^3/uL (1.70-6.50) Absolute Lymphs (auto) 0.93 10^3/uL L 10^3/uL (1.00-3.00) Absolute Monos (auto) 0.77 10^3/uL 10^3/uL (0.30-0.80) Absolute Eos (auto) 0.04 10^3/uL 10^3/uL (0.03-0.40) Absolute Basos (auto) 0.02 10^3/uL 10^3/uL (0.02-0.10) Absolute Nucleated RBC 0.00 10^3/uL 10^3/uL (0-0.01) Immature Gran % 0.4 % % (0.0-1.1) Immature Gran # 0.03 10^3/uL 10^3/uL (0.00-0.10) VBG Lactic Acid 1.8 mmol/L mmol/L (0.7-2.1) Sodium Potassium Chloride Carbon Dioxide Anion Gap BUN Creatinine Estimated GFR Glucose Calcium Urine Color Urine Appearance Urine pH Ur Specific [place] Urine Protein Urine Ketones Urine Blood Urine Nitrate Urine Bilirubin Urine Urobilinogen Ur Leukocyte Esterase Urine Glucose Nasal Influenza A PCR Nasal Influenza B PCR Departure - Departure Disposition: Home, Routine, Self-Care Clinical Impression: History of bacteremia Condition: Good Instructions: Fever in Adults (ED) Additional Instructions: 1. Please return to the ED for the development of high fever, pain, difficulty breathing, urinary symptoms or other concerns. 2. Please contact the emergency department tomorrow at [phone] to check the results of your blood culture. 3. Please follow up with your primary care provider for a recheck within the next week. Referrals: David Barnes DO [Primary Care Provider] - As per Instructions
[2017-10-02 16:03] LABS: PLATELET COUNT 166 10^3/uL (150-400)
[2017-10-02 17:18] VITALS: BP 131/84; PULSE 64; RESP 185; O2SAT 95
== END 2017-10-02 17:58 | disposition home or self-care (01) ==
DX: Z86.19 Personal history of other infectious and parasitic diseases (principal); I25.10 Atherosclerotic heart disease of native coronary artery without angina pectoris; Z87.891 Personal history of nicotine dependence; Z79.82 Long term (current) use of aspirin

== ENCOUNTER → 2018-05-17 | Outpatient (CLI) | payer OTHER, MEDICARE | LOC: FCPNEURO 21:00 | PROVIDERS: ATTEND Psychiatry & Neurology Sleep Medicine | DX: G47.33 Obstructive sleep apnea (adult) (pediatric) (principal) ==

== ENCOUNTER → 2019-02-24 | Outpatient (CLI) | payer OTHER, MEDICARE | LOC: BHFA 16:00 | PROVIDERS: ATTEND Internal Medicine Interventional Cardiology | DX: R53.83 Other fatigue (principal) ==